=== PATIENT | female | born 2000 | race Caucasian/White ===

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

== ENCOUNTER → 2020-10-31 | Outpatient (CLI) | payer SELFPAY | LOC: M LABSMTC 13:00 | PROVIDERS: ATTEND Pediatrics | DX: Z11.52 Encounter for screening for COVID-19 (principal) ==

== ENCOUNTER → 2021-12-01 | Outpatient (REF) | payer MEDICAID ==
[~2021-12-01] MED LIST changes: -IBUP200T45 PO; +IBUP200T46 PO
[2021-12-01 13:08] LABS: BASO % 0.1 % (0.0-1.0); EOS # 0.1 10^3/uL (0.0-0.5); HEMATOCRIT 42.5 % (36.0-47.0); HEMOGLOBIN 14.1 g/dl (12.0-15.5); LYMPH # 2.4 10^3/uL (1.5-5.0); LYMPH % 36.1 % (24.0-44.0); MEAN CORPUSCULAR HEMOGLOBIN 29.3 pg (27.0-33.0); MEAN CORPUSCULAR HGB CONC 33.2 g/dl (32.0-36.5); MEAN CORPUSCULAR VOLUME 88.4 fl (80.0-96.0); MONO # 0.5 10^3/uL (0.0-0.8); MONO % 7.8 % (2.0-8.0); NEUTROPHILS # 3.6 10^3/uL (1.5-8.5); NEUTROPHILS % 54.6 % (36.0-66.0); PLATELET COUNT, AUTOMATED 371 10^3/uL (150-450); RED BLOOD COUNT 4.81 10^6/uL (4.00-5.40); WHITE BLOOD COUNT 6.7 10^3/uL (4.0-10.0)
[2021-12-01 13:47] LABS: ALBUMIN 4.4 GM/DL (3.2-5.2); ALT/SGPT 42 U/L (12-78); BILIRUBIN,TOTAL 0.2 MG/DL (0.2-1.0); BLOOD UREA NITROGEN 13 MG/DL (7-18); CALCIUM LEVEL 9.8 MG/DL (8.5-10.1); CARBON DIOXIDE LEVEL 29 MEQ/L (21-32); CHLORIDE LEVEL 103 MEQ/L (98-107); CREATININE FOR GFR 0.56 MG/DL (0.55-1.30); GLOMERULAR FILTRATION RATE > 60.0 (>60); GLUCOSE, FASTING 86 MG/DL (70-100); POTASSIUM SERUM 4.2 MEQ/L (3.5-5.1); SODIUM LEVEL 139 MEQ/L (136-145); TOTAL PROTEIN 8.1 GM/DL (6.4-8.2)
== END ==
LOC: M SFHCADAM 10:47
PROVIDERS: ATTEND Physician Assistant Medical
DX: F41.0 Panic disorder [episodic paroxysmal anxiety] (principal)

== ENCOUNTER 2022-01-13 14:06 | Emergency (ER) | payer MEDICAID ==
[~2022-01-13] VITALS: Ht 149.9 cm; Wt 57.7 kg
[2022-01-13 15:32] LABS: EOS % 0.4 % (0.0-3.0); HEMOGLOBIN 12.9 g/dl (12.0-15.5); LYMPH # 2.1 10^3/uL (1.5-5.0); LYMPH % 24.2 % (24.0-44.0); MEAN CORPUSCULAR HEMOGLOBIN 28.9 pg (27.0-33.0); MEAN CORPUSCULAR HGB CONC 33.1 g/dl (32.0-36.5); MEAN CORPUSCULAR VOLUME 87.4 fl (80.0-96.0); MONO # 0.5 10^3/uL (0.0-0.8); MONO % 6.1 % (2.0-8.0); NEUTROPHILS # 5.8 10^3/uL (1.5-8.5); NEUTROPHILS % 68.8 % (36.0-66.0); PLATELET COUNT, AUTOMATED 343 10^3/uL (150-450); RED BLOOD COUNT 4.46 10^6/uL (4.00-5.40); WHITE BLOOD COUNT 8.5 10^3/uL (4.0-10.0)
[2022-01-13 15:53] LABS: ALBUMIN 3.9 GM/DL (3.2-5.2); ALT/SGPT 32 U/L (12-78); BILIRUBIN,DIRECT 0.1 MG/DL (0.0-0.2); BILIRUBIN,TOTAL 0.2 MG/DL (0.2-1.0); BLOOD UREA NITROGEN 13 MG/DL (7-18); CALCIUM LEVEL 9.6 MG/DL (8.5-10.1); CARBON DIOXIDE LEVEL 27 MEQ/L (21-32); CHLORIDE LEVEL 108 MEQ/L (98-107); CREATININE FOR GFR 0.46 MG/DL (0.55-1.30); GLOMERULAR FILTRATION RATE > 60.0 (>60); GLUCOSE, FASTING 83 MG/DL (70-100); HCG, SERUM QUANTITATIVE < 1.0 MIU/ML; LIPASE 104 U/L (73-393); POTASSIUM SERUM 3.9 MEQ/L (3.5-5.1); SODIUM LEVEL 139 MEQ/L (136-145); TOTAL PROTEIN 7.2 GM/DL (6.4-8.2)
[2022-01-13] MEDS ORDERED: KETOROLAC 60MG 2ML VIAL IM ONE (20:10)
[2022-01-13 22:55] VITALS: BP 121/77
== END 2022-01-13 22:59 | disposition home or self-care (01) ==
LOC: M ED 14:06
DX: R10.2 Pelvic and perineal pain (principal); Z79.899 Other long term (current) drug therapy
CPT/HCPCS: 36415; 76856; 80048; 80076; 81001; 83690; 84702; 85025; 86850; 86900; 86901; 93976; 96372; 99283; J1885

== ENCOUNTER → 2022-03-09 | Outpatient (CLI) | payer MEDICAID ==
[2022-03-09 15:17] LABS: HEMATOCRIT 38.6 % (36.0-47.0); HEMOGLOBIN 12.7 g/dl (12.0-15.5); MEAN CORPUSCULAR HEMOGLOBIN 28.7 pg (27.0-33.0); MEAN CORPUSCULAR HGB CONC 32.9 g/dl (32.0-36.5); MEAN CORPUSCULAR VOLUME 87.1 fl (80.0-96.0); PLATELET COUNT, AUTOMATED 308 10^3/uL (150-450); RED BLOOD COUNT 4.43 10^6/uL (4.00-5.40); WHITE BLOOD COUNT 9.2 10^3/uL (4.0-10.0)
[2022-03-09 16:49] LABS: GC DNA AMPLIFICATION NEGATIVE (NEGATIVE)
[2022-03-09 20:42] LABS: HEPATITIS B SURFACE ANTIGEN NEGATIVE (NEGATIVE); HEPATITIS C VIRUS ABY INDEX 0.1 INDEX (<0.8); HIV 1&2 SCREEN CENTAUR NEGATIVE (NEGATIVE)
== END ==
LOC: M PLALAB 12:43
PROVIDERS: ATTEND Obstetrics & Gynecology
DX: Z34.91 Encounter for supervision of normal pregnancy, unspecified, first trimester (principal)

== ENCOUNTER → 2022-04-15 | Outpatient (REF) | payer MEDICAID | LOC: M SFHCWAGY 16:48 | PROVIDERS: ATTEND Advanced Practice Midwife | DX: Z36.89 Encounter for other specified antenatal screening (principal); Z34.82 Encounter for supervision of other normal pregnancy, second trimester ==

== ENCOUNTER → 2022-05-08 | Outpatient (CLI) | payer MEDICAID | LOC: M WHC 15:31 | PROVIDERS: ATTEND Advanced Practice Midwife | DX: Z36.3 Encounter for antenatal screening for malformations (principal); Z3A.18 18 weeks gestation of pregnancy ==

== ENCOUNTER → 2022-06-02 | Outpatient (CLI) | payer MEDICAID | LOC: M WHC 15:03 | PROVIDERS: ATTEND Obstetrics & Gynecology | DX: Z36.2 Encounter for other antenatal screening follow-up (principal); Z3A.22 22 weeks gestation of pregnancy ==

== ENCOUNTER → 2022-06-24 | Outpatient (REF) | payer MEDICAID ==
[2022-06-24 17:26] LABS: BASO % 0.1 % (0.0-1.0); EOS % 0.3 % (0.0-3.0); HEMATOCRIT 33.7 % (36.0-47.0); HEMOGLOBIN 10.8 g/dl (12.0-15.5); LYMPH # 1.8 10^3/uL (1.5-5.0); LYMPH % 17.3 % (24.0-44.0); MEAN CORPUSCULAR HEMOGLOBIN 28.2 pg (27.0-33.0); MONO # 0.9 10^3/uL (0.0-0.8); MONO % 8.8 % (2.0-8.0); NEUTROPHILS # 7.4 10^3/uL (1.5-8.5); NEUTROPHILS % 72.4 % (36.0-66.0); PLATELET COUNT, AUTOMATED 248 10^3/uL (150-450); RED BLOOD COUNT 3.83 10^6/uL (4.00-5.40); WHITE BLOOD COUNT 10.2 10^3/uL (4.0-10.0)
[2022-06-24 18:46] LABS: PERCENT SATURATION 12.1 % (13.2-45.0)
== END ==
LOC: M SFHCADAM 14:44
PROVIDERS: ATTEND Physician Assistant Medical
DX: R42 Dizziness and giddiness (principal); G25.81 Restless legs syndrome

== ENCOUNTER → 2022-07-02 | Outpatient (CLI) | payer MEDICAID ==
[2022-07-02 17:40] LABS: HEMATOCRIT 33.8 % (36.0-47.0); HEMOGLOBIN 10.9 g/dl (12.0-15.5); MEAN CORPUSCULAR HEMOGLOBIN 28.6 pg (27.0-33.0); MEAN CORPUSCULAR HGB CONC 32.2 g/dl (32.0-36.5); MEAN CORPUSCULAR VOLUME 88.7 fl (80.0-96.0); PLATELET COUNT, AUTOMATED 237 10^3/uL (150-450); RED BLOOD COUNT 3.81 10^6/uL (4.00-5.40); WHITE BLOOD COUNT 10.6 10^3/uL (4.0-10.0)
== END ==
LOC: M PLALAB 14:37
PROVIDERS: ATTEND Obstetrics & Gynecology
DX: Z34.92 Encounter for supervision of normal pregnancy, unspecified, second trimester (principal); Z3A.00 Weeks of gestation of pregnancy not specified

== ENCOUNTER → 2022-07-07 | Outpatient (CLI) | payer MEDICAID | LOC: M WHC 14:10 | PROVIDERS: ATTEND Obstetrics & Gynecology | DX: Z36.2 Encounter for other antenatal screening follow-up (principal); Z3A.26 26 weeks gestation of pregnancy ==

== ENCOUNTER → 2022-09-02 | Outpatient (REF) | payer MEDICAID | LOC: M PLALAB 09:07 | PROVIDERS: ATTEND Advanced Practice Midwife | DX: Z34.83 Encounter for supervision of other normal pregnancy, third trimester (principal) ==

== ENCOUNTER 2022-09-14 13:07 | Outpatient (CLI) | payer MEDICAID ==
[~2022-09-14] VITALS: Ht 149.9 cm; Wt 66.0 kg
[2022-09-14 13:28] VITALS: BP 131/75
[2022-09-14] MEDS ORDERED: PRENTAB9 PO (13:33)
[2022-09-14] MEDS ORDERED: HOME MED LIST COMPLETE! XX SCH (13:35)
[2022-09-14 15:01] LABS: APPEARANCE, URINE MANUAL HAZY (CLEAR); COLOR, URINE MANUAL YELLOW (YELLOW)
[2022-09-14 15:02] LABS: SPECIFIC GRAVITY,URINE MANUAL 1.015 (1.002-1.035)
[2022-09-14 15:03] LABS: BILIRUBIN, URINE MANUAL NEGATIVE (NEGATIVE); BLOOD URINE MANUAL NEGATIVE (NEGATIVE); GLUCOSE, URINE (UA) MANUAL NEGATIVE (NEGATIVE); KETONE, URINE MANUAL NEGATIVE (NEGATIVE); LEUKOCYTE ESTERASE, URINE MAN POSITIVE (NEGATIVE); NITRITE, URINE MANUAL NEGATIVE (NEGATIVE); PROTEIN, URINE MANUAL TRACE mg/dL (NEGATIVE); UROBILINOGEN, URINE MANUAL NORMAL (NORMAL)
[2022-09-14 15:21] LABS: AMORPHOUS SEDIMENT, URINE SMALL AMOUNT (NEGATIVE); BACTERIA, URINE SMALL AMOUNT; HYALINE CAST, URINE NONE SEEN /lpf (0-1); SQUAMOUS EPITHELIAL CELL URINE MOD AMOUNT /hpf (SMALL AMT)
[2022-09-14] MEDS ORDERED: FLUCONAZOLE 100 MG TAB PO ONE (16:00)
== END 2022-09-14 15:05 | disposition home or self-care (01) ==
LOC: M LDO 13:07
PROVIDERS: ATTEND Advanced Practice Midwife
DX: O26.893 Other specified pregnancy related conditions, third trimester (principal); N89.8 Other specified noninflammatory disorders of vagina; O23.593 Infection of other part of genital tract in pregnancy, third trimester; B37.9 Candidiasis, unspecified; Z3A.37 37 weeks gestation of pregnancy

== ENCOUNTER → 2023-01-19 | Outpatient (CLI) | payer MEDICAID ==
[~2023-01-19] MED LIST changes: +FERR325T3 PO; +PRENTAB9 PO; +VITAD400CA FT
== END ==
LOC: M RAD 07:03
PROVIDERS: ATTEND Physician Assistant Medical
DX: K80.20 Calculus of gallbladder without cholecystitis without obstruction (principal)

== ENCOUNTER 2023-05-14 04:25 | Emergency (ER) | payer MEDICAID, OTHER ==
[~2023-05-14] VITALS: Ht 149.9 cm; Wt 68.0 kg
[2023-05-14 05:23] LABS: BASO % 0.1 % (0.0-1.0); EOS # 0.1 10^3/uL (0.0-0.5); EOS % 0.6 % (0.0-3.0); HEMATOCRIT 36.3 % (36.0-47.0); HEMOGLOBIN 11.8 g/dl (12.0-15.5); LYMPH # 1.4 10^3/uL (1.5-5.0); LYMPH % 17.3 % (24.0-44.0); MEAN CORPUSCULAR HEMOGLOBIN 28.2 pg (27.0-33.0); MEAN CORPUSCULAR HGB CONC 32.5 g/dl (32.0-36.5); MEAN CORPUSCULAR VOLUME 86.6 fl (80.0-96.0); MONO # 0.6 10^3/uL (0.0-0.8); MONO % 7.6 % (2.0-8.0); NEUTROPHILS # 5.9 10^3/uL (1.5-8.5); NEUTROPHILS % 73.9 % (36.0-66.0); PLATELET COUNT, AUTOMATED 288 10^3/uL (150-450); RED BLOOD COUNT 4.19 10^6/uL (4.00-5.40); WHITE BLOOD COUNT 7.9 10^3/uL (4.0-10.0)
[2023-05-14 05:45] LABS: ALBUMIN 3.6 G/DL (3.2-5.2); ALKALINE PHOSPHATASE 96 U/L (46-116); ALT/SGPT 111 U/L (7.0-40); AST/SGOT 99 U/L (<34); BILIRUBIN,DIRECT < 0.1 MG/DL (<0.4); BILIRUBIN,TOTAL 0.2 MG/DL (0.3-1.2); BLOOD UREA NITROGEN 11 MG/DL (9-23); CALCIUM LEVEL 8.9 MG/DL (8.5-10.1); CARBON DIOXIDE LEVEL 27 MMOL/L (20-31); CHLORIDE LEVEL 106 MMOL/L (98-107); CREATININE FOR GFR 0.48 MG/DL (0.55-1.30); GLOMERULAR FILTRATION RATE > 60.0 (>60); GLUCOSE, FASTING 106 MG/DL (60-100); SODIUM LEVEL 141 MMOL/L (136-145); TOTAL PROTEIN 6.7 G/DL (5.7-8.2)
[2023-05-14] MEDS ORDERED: NS 1,000 ML IV ONE (06:20)
[2023-05-14 06:45] LABS: LIPASE 31 U/L (12-53)
[2023-05-14 06:49] LABS: HCG, SERUM QUALITATIVE NEGATIVE (NEGATIVE)
[2023-05-14] MEDS ORDERED: HYDR-3713 PO (08:11)
[2023-05-14] MEDS ORDERED: MIRA3350 PO (08:11)
[2023-05-14 08:15] VITALS: BP 113/59
[2023-05-14 08:22] VITALS: TEMP 98.2; O2SAT 99
== END 2023-05-14 08:39 | disposition home or self-care (01) ==
LOC: M ED 04:25
DX: K80.20 Calculus of gallbladder without cholecystitis without obstruction (principal); K76.0 Fatty (change of) liver, not elsewhere classified; F41.9 Anxiety disorder, unspecified; Z79.1 Long term (current) use of non-steroidal anti-inflammatories (NSAID); Z79.899 Other long term (current) drug therapy

== ENCOUNTER 2023-05-31 08:09 | Day surgery (SDC) | payer BC, MEDICAID, OTHER ==
[~2023-05-31] VITALS: Ht 149.9 cm; Wt 68.9 kg
[~2023-05-31 08:09] MED LIST changes: +CelecoXIB 400 MG CAP PO ONE; +HYDR-3713 PO; +INDOCYANINE GREEN 25MG VIAL (IC-GREEN) As Ordered ONE; +LIDOCAINE 1% SDV 30ML VIAL As Ordered ONE; +MIRA3350 PO; +ceFAZolin SOD 2 GM in IV 1 EA IV ONE
[2023-05-31] MEDS ORDERED: LR 1,000 ML IV SCH ×2 (08:15→10:45)
[2023-05-31] MEDS ORDERED: MIDAZOLAM INJ 2MG/2ML VIAL As Ordered ONE (09:57)
[2023-05-31] MEDS ORDERED: ONDANSETRON 4MG 2ML VIAL As Ordered ONE (09:57)
[2023-05-31] MEDS ORDERED: ACETAMINOPHEN 1000MG 100ML IV BAG As Ordered ONE (09:57)
[2023-05-31] MEDS ORDERED: propofoL 200 MG/20 ML VIAL As Ordered ONE (09:57)
[2023-05-31] MEDS ORDERED: fentaNYL 250 MCG/5 ML INJECTION As Ordered ONE (09:57)
[2023-05-31] MEDS ORDERED: ePHEDrine SULFATE 25 MG/5 ML(5MG/ML) SYRINGE As Ordered ONE ×2 (09:57→11:25)
[2023-05-31] MEDS ORDERED: SUGAMMADEX SODIUM 500 MG/5 ML VIAL (BRIDION) As Ordered ONE (09:57)
[2023-05-31] MEDS ORDERED: ROCURONIUM BROMIDE 50MG/5ML VIAL As Ordered ONE (09:57)
[2023-05-31] MEDS ORDERED: KETOROLAC 60MG 2ML VIAL As Ordered ONE (09:57)
[2023-05-31] MEDS ORDERED: LIDOCAINE 2% 100MG/5ML SDV (FOR ANES.) As Ordered ONE (09:57)
[2023-05-31] MEDS ORDERED: oxyCODONE 5MG TAB PO PRN (10:45)
[2023-05-31] MEDS ORDERED: fentaNYL 100 MCG/2 ML INJECTION IV PRN (10:45)
[2023-05-31] MEDS ORDERED: HYDROMORPHONE HCL 0.5 MG/ 0.5 ML SYRINGE IV PRN (10:45)
[2023-05-31] MEDS ORDERED: ONDANSETRON 4MG 2ML VIAL IV PRN (10:45)
[2023-05-31] MEDS ORDERED: NORCO, ANEXSIA 5/325MG TABLET (HYDROcodone/ACETAMINOPHEN) PO PRN ×2 (11:10)
[2023-05-31] MEDS ORDERED: METOCLOPRAMIDE INJ 10MG/2ML VIAL IV STA (13:06)
[2023-05-31 13:45] VITALS: BP 118/74; TEMP 96.8; O2SAT 95
[2023-05-31] MEDS ORDERED: KETOROLAC 30 MG/ML 1ML VIAL IV SCH (16:00)
== END 2023-05-31 14:00 | disposition home or self-care (01) ==
LOC: M SDC 08:09
PROVIDERS: ATTEND Surgery
DX: K80.10 Calculus of gallbladder with chronic cholecystitis without obstruction (principal); F32.A Depression, unspecified; F41.9 Anxiety disorder, unspecified; Z79.899 Other long term (current) drug therapy
CPT/HCPCS: 47563; 81025; 88304; J0131; J0665; J0690; J1100; J1170; J1885; J2250; J2405; J2765; J3010; Q9968; S2900

== ENCOUNTER → 2023-12-07 | Outpatient (CLI) | payer MEDICAID, OTHER ==
[~2023-12-07] MED LIST changes: -CelecoXIB 400 MG CAP PO ONE; -INDOCYANINE GREEN 25MG VIAL (IC-GREEN) As Ordered ONE; -LIDOCAINE 1% SDV 30ML VIAL As Ordered ONE; -ceFAZolin SOD 2 GM in IV 1 EA IV ONE
[2023-12-07 17:36] LABS: HEMOGLOBIN 12.2 g/dl (12.0-15.5); MEAN CORPUSCULAR HEMOGLOBIN 28.8 pg (27.0-33.0); MEAN CORPUSCULAR HGB CONC 33.9 g/dl (32.0-36.5); MEAN CORPUSCULAR VOLUME 84.9 fl (80.0-96.0); PLATELET COUNT, AUTOMATED 298 10^3/uL (150-450); RED BLOOD COUNT 4.24 10^6/uL (4.00-5.40); WHITE BLOOD COUNT 9.1 10^3/uL (4.0-10.0)
[2023-12-07 18:34] LABS: HIV 1&2 SCREEN NEGATIVE (NEGATIVE)
[2023-12-07 18:42] LABS: HEPATITIS C VIRUS ABY INDEX < 0.02 INDEX (<0.8)
[2023-12-07 18:58] LABS: GC DNA AMPLIFICATION NEGATIVE (NEGATIVE)
== END ==
LOC: M PLALAB 15:15
PROVIDERS: ATTEND Specialist
DX: Z34.81 Encounter for supervision of other normal pregnancy, first trimester (principal); Z3A.00 Weeks of gestation of pregnancy not specified

== ENCOUNTER → 2024-01-06 | Outpatient (REF) | payer MEDICAID | LOC: M SFHCWAGY 13:00 | PROVIDERS: ATTEND Advanced Practice Midwife | DX: Z34.82 Encounter for supervision of other normal pregnancy, second trimester (principal) ==

== ENCOUNTER → 2024-01-17 | Outpatient (CLI) | payer OTHER | LOC: M WHC 13:25 | PROVIDERS: ATTEND Advanced Practice Midwife | DX: Z34.82 Encounter for supervision of other normal pregnancy, second trimester (principal); Z3A.19 19 weeks gestation of pregnancy ==

== ENCOUNTER → 2024-02-17 | Outpatient (CLI) | payer OTHER | LOC: M WHC 12:27 | PROVIDERS: ATTEND Advanced Practice Midwife | DX: Z34.82 Encounter for supervision of other normal pregnancy, second trimester (principal); Z3A.23 23 weeks gestation of pregnancy ==

== ENCOUNTER → 2024-03-20 | Outpatient (CLI) | payer MEDICAID, OTHER | LOC: M RAD 12:36 | PROVIDERS: ATTEND Advanced Practice Midwife | DX: Z34.83 Encounter for supervision of other normal pregnancy, third trimester (principal); Z3A.28 28 weeks gestation of pregnancy ==

== ENCOUNTER → 2024-04-21 | Outpatient (CLI) | payer OTHER, MEDICAID ==
[2024-04-21 15:26] LABS: HEMATOCRIT 33.2 % (36.0-47.0); HEMOGLOBIN 10.8 g/dl (12.0-15.5); MEAN CORPUSCULAR HEMOGLOBIN 26.9 pg (27.0-33.0); MEAN CORPUSCULAR HGB CONC 32.5 g/dl (32.0-36.5); MEAN CORPUSCULAR VOLUME 82.8 fl (80.0-96.0); PLATELET COUNT, AUTOMATED 226 10^3/uL (150-450); RED BLOOD COUNT 4.01 10^6/uL (4.00-5.40); WHITE BLOOD COUNT 9.9 10^3/uL (4.0-10.0)
[2024-04-21 16:28] LABS: GLUCOSE CHALLENGE TEST 1 HOUR 192 MG/DL (LESS THAN 140)
[2024-04-21 16:52] LABS: GC DNA AMPLIFICATION NEGATIVE (NEGATIVE)
[2024-04-21 17:04] LABS: HIV 1&2 SCREEN NEGATIVE (NEGATIVE)
[2024-04-21 17:11] LABS: HEPATITIS C VIRUS ABY INDEX < 0.02 INDEX (<0.8)
== END ==
LOC: M PLALAB 11:55
PROVIDERS: ATTEND Advanced Practice Midwife
DX: Z34.83 Encounter for supervision of other normal pregnancy, third trimester (principal)

== ENCOUNTER → 2024-05-12 | Outpatient (REF) | payer OTHER, MEDICAID | LOC: M SFHCWAGY 12:46 | PROVIDERS: ATTEND Advanced Practice Midwife | DX: O09.293 Supervision of pregnancy with other poor reproductive or obstetric history, third trimester (principal); Z3A.00 Weeks of gestation of pregnancy not specified ==

== ENCOUNTER → 2024-05-16 | Outpatient (CLI) | payer OTHER | LOC: M LAB 07:11 | PROVIDERS: ATTEND Advanced Practice Midwife | DX: O99.810 Abnormal glucose complicating pregnancy (principal); Z3A.00 Weeks of gestation of pregnancy not specified ==

== ENCOUNTER 2024-06-05 08:33 | Inpatient (IN) | payer OTHER, MEDICAID ==
[~2024-06-05] VITALS: Ht 149.9 cm; Wt 76.1 kg
[2024-06-05] VITALS (22 sets, daily range): BP systolic 113–151; BP diastolic 56–97
[2024-06-05] MEDS ORDERED: TRANEXAMIC ACID INJection 1,000 MG in NS 100 ML IV PRN (08:50)
[2024-06-05] MEDS ORDERED: CARBOPROST TROMETHAMINE 250 MCG/ML AMP IM PRN (08:50)
[2024-06-05] MEDS ORDERED: LIDOCAINE 1% MDV 20ML VIAL INFIL PRN (08:50)
[2024-06-05] MEDS ORDERED: OXYTOCIN DRIP 30 UNITS in IV 1 EA IV PRN (08:50)
[2024-06-05] MEDS ORDERED: OXYTOCIN INJ 10UNITS/ML 1ML VIAL IM PRN (08:50)
[2024-06-05] MEDS ORDERED: PNV1TABL16 PO (09:06)
[2024-06-05] MEDS: miSOPROStol 50MCG 1/2 TABLET PO SCH (09:37)
[2024-06-05 09:38] LABS: HEMATOCRIT 32.6 % (36.0-47.0); HEMOGLOBIN 10.8 g/dl (12.0-15.5); MEAN CORPUSCULAR HGB CONC 33.1 g/dl (32.0-36.5); MEAN CORPUSCULAR VOLUME 81.5 fl (80.0-96.0); PLATELET COUNT, AUTOMATED 224 10^3/uL (150-450); WHITE BLOOD COUNT 9.5 10^3/uL (4.0-10.0)
[2024-06-05 10:43] LABS: HEPATITIS C VIRUS ABY INDEX < 0.02 INDEX (<0.8)
[2024-06-05] MEDS: OXYTOCIN DRIP 30 UNITS in IV 1 EA IV SCH (18:35)
[2024-06-05] MEDS: LR 1,000 ML IV SCH (18:35)
[2024-06-05] MEDS ORDERED: LR 500 ML IV PRN (21:50)
[2024-06-05] MEDS ORDERED: ePHEDrine SULFATE 25 MG/5 ML(5MG/ML) SYRINGE IVP PRN (21:50)
[2024-06-05] MEDS ORDERED: EPIDURAL/PCA KEYS XX PRN (21:50)
[2024-06-05] MEDS ORDERED: NALOXONE INJ 0.4MG/1ML VIAL IV PRN (21:50)
[2024-06-05] MEDS ORDERED: diphenhydrAMINE 50MG/ML VIAL IV PRN (21:50)
[2024-06-05] MEDS ORDERED: ONDANSETRON 4MG 2ML VIAL IV PRN (21:50)
[2024-06-05] MEDS: FENTANYL/ROPIVACAINE/NACL BAG 100 ML EPIDURAL SCH (21:54)
[2024-06-06] VITALS (10 sets, daily range): BP systolic 109–137; BP diastolic 55–80; O2SAT 96–100
[2024-06-06 01:34] LABS: CORD GAS ABE A -2.7; CORD GAS ABE V -11.3; CORD GAS HCO3 A 21.4 MMOL/L; CORD GAS HCO3 V 17.9 MMOL/L; CORD GAS O2 SAT A 83.9 %; CORD GAS PCO2 A 35.6 mmHg; CORD GAS PCO2 V 52.4 mmHg; CORD GAS PH A 7.397 UNITS; CORD GAS PH V 7.152 UNITS; CORD GAS PO2 V 35.3 mmHg; CORD GAS SBC A 21.9 MMOL/L; CORD GAS SBC V 15.2 MMOL/L; CORD GAS TCO2 A 22.5 MMOL/L; CORD GAS TCO2 V 19.5 MMOL/L
[2024-06-06] MEDS ORDERED: DOCUSATE SODIUM 100MG CAPSULE PO PRN (01:55)
[2024-06-06] MEDS ORDERED: MOM 30ML SUSPENSION UDC PO PRN (01:55)
[2024-06-06] MEDS ORDERED: DIBUCAINE 1% OINTMENT 30GM TOP PRN (01:55)
[2024-06-06] MEDS ORDERED: IBUPROFEN 600MG TAB PO PRN (01:55)
[2024-06-06] MEDS ORDERED: RHOGAM 300MCG (1500IU) INJ IM SCH (01:55)
[2024-06-06] MEDS ORDERED: ACETAMINOPHEN 500 MG TAB PO PRN (01:55)
[2024-06-06] MEDS ORDERED: ANUSOL HC CREAM 30GM TOP PRN (01:55)
[2024-06-06] MEDS ORDERED: ACETAMINOPHEN 325 MG TAB PO PRN (01:55)
[2024-06-06] MEDS: METHYLERGONOVINE MALEATE 0.2MG/ML 1ML VIAL IM PRN (01:57)
[2024-06-06] MEDS: ONDANSETRON 4MG 2ML VIAL IV PRN (02:30)
[2024-06-06] MEDS: PRENATAL VITAMINS CHEWABLE TABLET PO SCH (10:18)
[2024-06-06] MEDS: IBUPROFEN 800 MG TAB PO PRN (15:37)
[2024-06-07 06:00] VITALS: BP 135/68; O2SAT 99
[2024-06-08] MEDS ORDERED: MEASLES,MUMPS,RUBELLA VACCINE INJ (MMR-II) SC.IMMUN ONE (09:00)
== END 2024-06-07 14:35 | disposition home or self-care (01) | DRG 560 ==
LOC: M LDI 08:33 → M OBS 21:00
PROVIDERS: ADMIT Advanced Practice Midwife; ATTEND Advanced Practice Midwife
PROC: 3E0P7VZ Introduction of Hormone into Female Reproductive, Via Natural or Artificial Opening (ICD-10-PCS; 2024-06-05)
PROC: 3E033VJ Introduction of Other Hormone into Peripheral Vein, Percutaneous Approach (ICD-10-PCS; 2024-06-05)
PROC: 10E0XZZ Delivery of Products of Conception, External Approach (ICD-10-PCS; principal; 2024-06-06)
DX: O24.420 Gestational diabetes mellitus in childbirth, diet controlled (principal); Z37.0 Single live birth; Z3A.39 39 weeks gestation of pregnancy

== ENCOUNTER → 2024-06-22 | Outpatient (REF) | payer OTHER, MEDICAID ==
[~2024-06-22] MED LIST changes: +PNV1TABL16 PO
== END ==
LOC: M LAB REF 16:54
PROVIDERS: ATTEND Physician Assistant
DX: J02.9 Acute pharyngitis, unspecified (principal)

== ENCOUNTER → 2025-05-08 | Outpatient (REF) | payer MEDICAID, OTHER ==
[~2025-05-08] MED LIST changes: +PROZ10CA11 PO; -PROZ10CA7 PO
[2025-05-08 13:31] LABS: BASO # 0.0 10^3/uL (0.0-0.2); BASO % 0.1 % (0.0-1.0); EOS # 0.1 10^3/uL (0.0-0.5); EOS % 1.0 % (0.0-3.0); LYMPH # 2.2 10^3/uL (1.5-5.0); LYMPH % 31.4 % (24.0-44.0); MONO # 0.5 10^3/uL (0.0-0.8); MONO % 7.4 % (2.0-8.0); NEUTROPHILS # 4.2 10^3/uL (1.5-8.5); NEUTROPHILS % 60.0 % (36.0-66.0); PLATELET COUNT, AUTOMATED 342 10^3/uL (150-450)
[2025-05-08 13:54] LABS: ESTIMATED AVERAGE GLUCOSE 114.0 MG/DL (60-110)
[2025-05-08 13:58] LABS: ALT/SGPT 58 U/L (7.0-40); AST/SGOT 24 U/L (<34); CALCIUM LEVEL 9.6 MG/DL (8.5-10.1); CARBON DIOXIDE LEVEL 30 MMOL/L (20-31); CHLORIDE LEVEL 102 MMOL/L (98-107); CREATININE FOR GFR 0.53 MG/DL (0.55-1.30); FREE T4 0.93 NG/DL (0.89-1.76); GLOMERULAR FILTRATION RATE > 90.0 (>60); IRON (FE) 55 UG/DL (50-170); PERCENT SATURATION 13.5 % (13.2-45.0); POTASSIUM SERUM 4.4 MMOL/L (3.5-5.1); SODIUM LEVEL 141 MMOL/L (136-145)
[2025-05-08 14:00] LABS: VITAMIN B12 LEVEL 412 PG/ML (211-911)
== END ==
LOC: M SFHCADAM 11:11
PROVIDERS: ATTEND Physician Assistant Medical
DX: R35.89 Other polyuria (principal); R63.1 Polydipsia; R20.0 Anesthesia of skin; R20.2 Paresthesia of skin; G89.29 Other chronic pain; M54.50 Low back pain, unspecified

== ENCOUNTER → 2025-05-08 | Outpatient (CLI) | payer MEDICAID, OTHER | LOC: M ADAMS 11:21 | PROVIDERS: ATTEND Physician Assistant Medical | DX: M54.50 Low back pain, unspecified (principal); R35.89 Other polyuria; R63.1 Polydipsia; R20.0 Anesthesia of skin; R20.2 Paresthesia of skin; G89.29 Other chronic pain ==

== ENCOUNTER → 2025-07-17 | Outpatient (CLI) | payer MEDICAID, OTHER | LOC: M RAD 06:42 | PROVIDERS: ATTEND Physician Assistant Medical | DX: K75.81 Nonalcoholic steatohepatitis (NASH) (principal) ==